=== PATIENT | male | born 1955 | race Caucasian/White ===

== ENCOUNTER 2017-01-17 09:50 | Inpatient (IN) | payer MEDICARE, MEDICAID ==
[~2017-01-17] VITALS: Ht 172.7 cm; Wt 78.5 kg
[~2017-01-17 09:50] MED LIST: Aspirin PO; CINA30 PO; CLOP75TA15 PO; COR6 PO; GABA-531 PO; GLYB5TAB7 PO; LINA5TAB PO; LOSA50TA3 PO; SEVE800T PO; Vitamin B Comp W-C PO
[2017-01-17 10:43] LABS: HEMATOCRIT. 30.4 % (42.0-52.0); HEMOGLOBIN. 9.7 g/dL (14.0-18.0); MEAN CORPUSCULAR HEMOGLOBIN 27.8 pg (28.0-32.0); MEAN CORPUSCULAR VOLUME 87.2 fL (80.0-94.0); MEAN PLATELET VOLUME 8.6 fl (7.4-10.4); PLATELET 235 x1000/uL (130-400); RED BLOOD CELL COUNT 3.49 mill/uL (4.7-6.1); RED CELL DISTRIBUTION WIDTH 15.3 % (11.6-14.6)
[2017-01-17 10:53] LABS: CARBON DIOXIDE 27 mEq/L (21-32); CHLORIDE 89 mEq/L (98-107)
[2017-01-17 11:01] LABS: TROPONIN I 0.12 ng/mL (0.00-0.04)
[2017-01-17 11:02] LABS: INR 1.6; PROTHROMBIN TIME 16.7 sec
[2017-01-17 11:14] LABS: PLATELET ESTIMATE NORMAL
[2017-01-17] MEDS ORDERED: ACETAMINOPHEN WITH CODEINE 300/30MG TABLET PO ONE (11:45)
[2017-01-17] MEDS ORDERED: ALBUTEROL (0.5%) 2.5MG/0.5ML NEB HHN ONE (11:45)
[2017-01-17] MEDS ORDERED: KETOROLAC 30MG/ML VIAL IV ONE (13:15)
[2017-01-17] MEDS ORDERED: POTASSIUM CHLORIDE 20MEQ TABLET SR PO ONE (15:00)
[2017-01-17] MEDS ORDERED: KCL 10MEQ/50ML PREMIX 50 ML IV ONE (15:00)
[2017-01-17] MEDS ORDERED: CLONIDINE 0.1MG TABLET PO PRN (16:15)
[2017-01-17] MEDS ORDERED: DOCUSATE SODIUM 100MG CAPSULE PO PRN (16:15)
[2017-01-17] MEDS ORDERED: IPRATROPIUM/ALBUTEROL 0.5-3(2.5)MG/3ML NEB INH PRN (16:15)
[2017-01-17] MEDS ORDERED: DEXTROSE 50% WATER 50ML SYRINGE IV PRN (16:15)
[2017-01-17] MEDS ORDERED: INSULIN REGULAR (HUMULIN R) 300UNITS/3ML IV ONE (16:15)
[2017-01-17] MEDS ORDERED: ONDANSETRON HCL 4MG/2ML VIAL IV PRN (16:15)
[2017-01-17] MEDS ORDERED: ENOXAPARIN 40MG/0.4ML SYR SUBCUT SCH ×2 (16:15→20:00)
[2017-01-17] MEDS ORDERED: GLIM4TAB2 PO (18:32)
[2017-01-17] MEDS ORDERED: GABA-531 PO (18:32)
[2017-01-17] MEDS ORDERED: BENA40TA3 PO (18:32)
[2017-01-17] MEDS ORDERED: ATOR-2 PO (18:32)
[2017-01-17 19:15] VITALS: BP 119/66
[2017-01-17 20:00] VITALS: BP 119/66
[2017-01-17] MEDS ORDERED: LEVOFLOXACIN 750MG PREMIX 150 ML IV NR (21:00)
[2017-01-17] MEDS: BLOOD SUGAR DIAGNOSTIC STRIP TEST SCH (21:26)
[2017-01-17] MEDS: INSULIN LISPRO 100 UNITS/ML SUBCUT SCH (22:06)
[2017-01-17] MEDS: INSULIN DETEMIR UD 100 UNITS/ML SYR SUBCUT SCH (23:18)
[2017-01-18] VITALS: BP 105/68
[2017-01-18] MEDS: ACETAMINOPHEN 325MG TABLET PO PRN ×2 (01:44→11:52)
[2017-01-18 04:00] VITALS: BP 95/61
[2017-01-18] MEDS: BLOOD SUGAR DIAGNOSTIC STRIP TEST SCH ×4 (05:59→21:02)
[2017-01-18 06:17] LABS: HEMATOCRIT. 29.7 % (42.0-52.0); HEMOGLOBIN. 9.6 g/dL (14.0-18.0); MEAN CORPUSCULAR HEMOGLOBIN 28.4 pg (28.0-32.0); MEAN CORPUSCULAR VOLUME 87.9 fL (80.0-94.0); MEAN PLATELET VOLUME 9.1 fl (7.4-10.4); PLATELET 208 x1000/uL (130-400); RED BLOOD CELL COUNT 3.38 mill/uL (4.7-6.1); RED CELL DISTRIBUTION WIDTH 15.6 % (11.6-14.6)
[2017-01-18 06:50] LABS: HEPATITIS B SURFACE ANTIGEN NEGATIVE
[2017-01-18 07:14] LABS: PHOSPHORUS 2.4 mg/dL (2.5-4.9); TROPONIN I 0.08 ng/mL (0.00-0.04)
[2017-01-18 07:17] LABS: HEPATITIS B CORE AB IGM NEGATIVE
[2017-01-18 07:19] LABS: HEPATITIS A AB IGM NEGATIVE (NEGATIVE)
[2017-01-18 08:00] VITALS: BP 100/56
[2017-01-18] MEDS: INSULIN LISPRO 100 UNITS/ML SUBCUT SCH ×3 (08:10→17:06)
[2017-01-18] MEDS: OMEPRAZOLE 20MG CAPSULE EXTENDED RELEASE PO SCH (08:19)
[2017-01-18 11:55] LABS: PLATELET ESTIMATE NORMAL
[2017-01-18 12:00] VITALS: BP 108/59
[2017-01-18] MEDS: DIPHENHYDRAMINE 25MG CAPSULE PO PRN ×2 (13:03→18:58)
[2017-01-18 16:00] VITALS: BP 106/63
[2017-01-18] MEDS: VANCOMYCIN 1,750 MG in DEXT 5% WATER 500 ML IV NR ×3 (18:07→20:30)
[2017-01-18 20:00] VITALS: BP 127/63
[2017-01-19] VITALS: BP 145/72
[2017-01-19] MEDS: DIPHENHYDRAMINE 25MG CAPSULE PO PRN ×2 (00:31→06:31)
[2017-01-19] MEDS: ENOXAPARIN 30MG/0.3ML SYR SUBCUT SCH ×2 (00:32→21:00)
[2017-01-19] MEDS: INSULIN LISPRO 100 UNITS/ML SUBCUT SCH ×5 (00:37→21:13)
[2017-01-19] MEDS: INSULIN DETEMIR UD 100 UNITS/ML SYR SUBCUT SCH ×2 (01:07→21:14)
[2017-01-19 04:00] VITALS: BP 144/69
[2017-01-19] MEDS: ACETAMINOPHEN 325MG TABLET PO PRN (04:29)
[2017-01-19] MEDS: BLOOD SUGAR DIAGNOSTIC STRIP TEST SCH ×4 (06:18→21:01)
[2017-01-19 08:00] VITALS: BP 116/63
[2017-01-19 08:38] LABS: HEMATOCRIT. 32.1 % (42.0-52.0); HEMOGLOBIN. 10.5 g/dL (14.0-18.0); MEAN CORPUSCULAR HEMOGLOBIN 28.4 pg (28.0-32.0); MEAN CORPUSCULAR VOLUME 87.3 fL (80.0-94.0); MEAN PLATELET VOLUME 9.1 fl (7.4-10.4); PLATELET 224 x1000/uL (130-400); RED BLOOD CELL COUNT 3.68 mill/uL (4.7-6.1); RED CELL DISTRIBUTION WIDTH 16.2 % (11.6-14.6)
[2017-01-19] MEDS: OMEPRAZOLE 20MG CAPSULE EXTENDED RELEASE PO SCH (09:23)
[2017-01-19] MEDS: SILVER SULFADIAZINE 1% CREAM 50GM TOP SCH (09:25)
[2017-01-19] MEDS ORDERED: ASPIRIN 81MG TABLET PO SCH (10:30)
[2017-01-19] MEDS ORDERED: LEVOFLOXACIN 500MG PREMIX 100 ML IV SCH (11:00)
[2017-01-19] MEDS: LINAGLIPTIN 5MG TABLET PO SCH (11:49)
[2017-01-19 12:00] VITALS: BP 110/67
[2017-01-19 16:00] VITALS: BP 126/82
[2017-01-19 17:23] LABS: PLATELET ESTIMATE NORMAL
[2017-01-19] MEDS: GLIMEPIRIDE 4MG TABLET PO SCH (18:04)
[2017-01-19 20:00] VITALS: BP 118/64
[2017-01-19] MEDS: GABAPENTIN 300MG CAPSULE PO SCH (21:00)
[2017-01-19] MEDS: CARVEDILOL 6.25 MG TABLET PO SCH (21:01)
[2017-01-19] MEDS: LOSARTAN POTASSIUM 50 MG TABLET PO SCH (21:01)
[2017-01-19] MEDS: ATORVASTATIN CALCIUM 40MG TABLET PO SCH (21:01)
[2017-01-20] VITALS: BP 121/70
[2017-01-20] MEDS: ACETAMINOPHEN 325MG TABLET PO PRN (01:00)
[2017-01-20 04:01] VITALS: BP 119/62
[2017-01-20 06:13] LABS: PHOSPHORUS 2.5 mg/dL (2.5-4.9)
[2017-01-20 06:38] LABS: BASOPHILS % 0.2 % (0.0-2.0); EOSINOPHILS % 1.5 % (0.0-5.0); HEMATOCRIT. 26.6 % (42.0-52.0); HEMOGLOBIN. 8.8 g/dL (14.0-18.0); MEAN CORPUSCULAR HEMOGLOBIN 28.6 pg (28.0-32.0); MEAN PLATELET VOLUME 9.1 fl (7.4-10.4); MONOCYTES % 6.9 % (2.0-8.0); NEUTROPHILS % 83.4 % (40.0-76.0); PLATELET 183 x1000/uL (130-400); RED BLOOD CELL COUNT 3.09 mill/uL (4.7-6.1); RED CELL DISTRIBUTION WIDTH 16.3 % (11.6-14.6)
[2017-01-20] MEDS: BLOOD SUGAR DIAGNOSTIC STRIP TEST SCH ×4 (06:49→20:03)
[2017-01-20] MEDS: INSULIN LISPRO 100 UNITS/ML SUBCUT SCH ×4 (07:24→20:03)
[2017-01-20 08:00] VITALS: BP 136/68
[2017-01-20] MEDS ORDERED: CLOPIDOGREL 75MG TABLET PO SCH (09:00)
[2017-01-20] MEDS ORDERED: ASPIRIN 81MG TABLET PO SCH (09:00)
[2017-01-20] MEDS: SILVER SULFADIAZINE 1% CREAM 50GM TOP SCH (09:00)
[2017-01-20] MEDS ORDERED: FAMOTIDINE 20MG TABLET PO SCH (09:00)
[2017-01-20] MEDS ORDERED: CINACALCET HCL 30MG TABLET PO SCH (09:00)
[2017-01-20 09:46] LABS: TOTAL IRON BINDING CAPACITY 164 ug/dL (250-450)
[2017-01-20 12:00] VITALS: BP 107/56
[2017-01-20 15:11] VITALS: BP 107/56
[2017-01-20 16:00] VITALS: BP 123/61
[2017-01-20] MEDS: GLIMEPIRIDE 4MG TABLET PO SCH ×2 (16:47→17:10)
[2017-01-20] MEDS: CARVEDILOL 6.25 MG TABLET PO SCH ×2 (16:47→19:50)
[2017-01-20] MEDS: LINAGLIPTIN 5MG TABLET PO SCH (16:48)
[2017-01-20] MEDS: LOSARTAN POTASSIUM 50 MG TABLET PO SCH ×2 (16:48→19:51)
[2017-01-20] MEDS: FERROUS SULFATE 325MG TABLET PO SCH ×2 (16:48→17:10)
[2017-01-20] MEDS ORDERED: VANCOMYCIN 1250MG in DEXTROSE 5% WATER 250ML IV SCH (17:00)
[2017-01-20] MEDS: GABAPENTIN 300MG CAPSULE PO SCH (19:49)
[2017-01-20] MEDS: ATORVASTATIN CALCIUM 40MG TABLET PO SCH (19:49)
[2017-01-20] MEDS: ENOXAPARIN 30MG/0.3ML SYR SUBCUT SCH (19:50)
[2017-01-20] MEDS: INSULIN DETEMIR UD 100 UNITS/ML SYR SUBCUT SCH (20:03)
[2017-01-20] MEDS ORDERED: EPOETIN ALFA 4000UNITS/ML VIAL SUBCUT SCH (21:00)
== END 2017-01-20 20:25 | DRG 871 ==
LOC: ER 10:08 → 7WST 11:47 → ENRESERV 15:23 → SUPCPDRO 15:23
PROVIDERS: ADMIT Family Medicine Adult Medicine; ATTEND Family Medicine Adult Medicine
PROC: 5A1D60Z (ICD-10-PCS; 2017-01-17)
PROC: 0Y9M0ZZ Drainage of Right Foot, Open Approach (ICD-10-PCS; principal; 2017-01-19)
DX: A41.9 Sepsis, unspecified organism (principal); E43 Unspecified severe protein-calorie malnutrition; N18.6 End stage renal disease; I13.2 Hypertensive heart and chronic kidney disease with heart failure and with stage 5 chronic kidney disease, or end stage renal disease; E87.1 Hypo-osmolality and hyponatremia; D68.9 Coagulation defect, unspecified; L02.611 Cutaneous abscess of right foot; I42.9 Cardiomyopathy, unspecified; M86.8X7 Other osteomyelitis, ankle and foot; L03.115 Cellulitis of right lower limb; I50.9 Heart failure, unspecified; D63.1 Anemia in chronic kidney disease; B95.8 Unspecified staphylococcus as the cause of diseases classified elsewhere; E11.22 Type 2 diabetes mellitus with diabetic chronic kidney disease; E11.319 Type 2 diabetes mellitus with unspecified diabetic retinopathy without macular edema; E11.42 Type 2 diabetes mellitus with diabetic polyneuropathy; E11.621 Type 2 diabetes mellitus with foot ulcer; E11.69 Type 2 diabetes mellitus with other specified complication; E78.5 Hyperlipidemia, unspecified; E87.6 Hypokalemia; I25.10 Atherosclerotic heart disease of native coronary artery without angina pectoris; E11.51 Type 2 diabetes mellitus with diabetic peripheral angiopathy without gangrene; L97.519 Non-pressure chronic ulcer of other part of right foot with unspecified severity; L97.529 Non-pressure chronic ulcer of other part of left foot with unspecified severity; M25.70 Osteophyte, unspecified joint; S92.501A Displaced unspecified fracture of right lesser toe(s), initial encounter for closed fracture; S92.354A Nondisplaced fracture of fifth metatarsal bone, right foot, initial encounter for closed fracture; I95.9 Hypotension, unspecified; W18.39XA Other fall on same level, initial encounter; Z99.2 Dependence on renal dialysis; Z82.49 Family history of ischemic heart disease and other diseases of the circulatory system; Z83.3 Family history of diabetes mellitus; Z87.891 Personal history of nicotine dependence; Z88.0 Allergy status to penicillin; Z95.5 Presence of coronary angioplasty implant and graft; Y93.89 Activity, other specified; Y92.89 Other specified places as the place of occurrence of the external cause; Y99.8 Other external cause status; Z98.42 Cataract extraction status, left eye; Z88.6 Allergy status to analgesic agent
CPT/HCPCS: 36415; 71010; 73562; 73630; 73721; 80048; 80053; 80061; 80076; 80202; 82728; 82962; 83036; 83540; 83550; 83735; 83880; 84100; 84484; 85025; 85610; 86705; 86709; 86803; 87040; 87070; 87077; 87205; 87340; 93005; 93306; 93923; 93970; 93971; 94640; 94664; 96365; 96375; 97162; 99285; C1893; G0482; J0885; J1650; J1815; J1885; J1956; J3370; J3480; J7030; J7050; J7060; J7611; J7620; Q0163

== ENCOUNTER 2017-02-18 16:15 | Emergency (ER) | payer MEDICARE, MEDICAID ==
[~2017-02-18] VITALS: Ht 172.7 cm; Wt 90.0 kg
[~2017-02-18 16:15] MED LIST changes: -GABA-531 PO
[2017-02-18] MEDS ORDERED: DIAZEPAM 5 MG TABLET PO ONE (18:45)
[2017-02-18] MEDS ORDERED: TRAMADOL 50MG TABLET PO ONE (19:30)
[2017-02-18 19:41] VITALS: BP 138/79
== END 2017-02-18 22:11 | disposition home or self-care (01) ==
LOC: ER 16:25
DX: M54.5 Low back pain (principal); E11.9 Type 2 diabetes mellitus without complications; I51.9 Heart disease, unspecified; Z88.0 Allergy status to penicillin; Z99.2 Dependence on renal dialysis; Z88.5 Allergy status to narcotic agent
CPT/HCPCS: 82962; 99283

== ENCOUNTER 2017-02-19 10:52 | Inpatient (IN) | payer MEDICARE, MEDICAID ==
[~2017-02-19] VITALS: Ht 172.7 cm; Wt 98.0 kg
[~2017-02-19 10:52] MED LIST changes: +REN800 PO; -SEVE800T PO
[2017-02-19] MEDS ORDERED: LEVOFLOXACIN 500MG PREMIX 100 ML IV ONE (12:45)
[2017-02-19] MEDS ORDERED: CLINDAMYCIN HCL 150MG CAPSULE PO SCH (12:45)
[2017-02-19] MEDS ORDERED: VANCOMYCIN 1 G PREMIX 200 ML IV SCH (12:45)
[2017-02-19 13:08] LABS: HEMATOCRIT. 28.3 % (42.0-52.0); HEMOGLOBIN. 9.3 g/dL (14.0-18.0); MEAN CORPUSCULAR HEMOGLOBIN 28.9 pg (28.0-32.0); MEAN PLATELET VOLUME 7.5 fl (7.4-10.4); PLATELET 274 x1000/uL (130-400); RED BLOOD CELL COUNT 3.22 mill/uL (4.7-6.1); RED CELL DISTRIBUTION WIDTH 17.9 % (11.6-14.6)
[2017-02-19 13:23] LABS: CARBON DIOXIDE 17 mEq/L (21-32); CHLORIDE 95 mEq/L (98-107)
[2017-02-19 13:33] LABS: NUCLEATED RED BLOOD CELLS 1 /100 WBC; PLATELET ESTIMATE NORMAL
[2017-02-19 14:18] LABS: INR 1.5; PROTHROMBIN TIME 15.3 sec (9.4-11.6)
[2017-02-19] MEDS ORDERED: SODIUM CHLORIDE 0.9% 1,000 ML IV ONE (15:03)
[2017-02-19 17:58] VITALS: BP 148/76
[2017-02-19 20:00] VITALS: BP 130/69
[2017-02-19] MEDS ORDERED: VANCOMYCIN 500 MG PREMIX 100 ML IV NR (20:00)
[2017-02-19] MEDS ORDERED: DEXTROSE 50% WATER 50ML SYRINGE IV PRN (22:45)
[2017-02-20] VITALS: BP 136/78
[2017-02-20 04:00] VITALS: BP 134/75
[2017-02-20] MEDS: BLOOD SUGAR DIAGNOSTIC STRIP TEST SCH ×4 (06:24→20:39)
[2017-02-20] MEDS: INSULIN LISPRO 100 UNITS/ML SUBCUT SCH ×4 (06:24→20:44)
[2017-02-20] MEDS: GLYBURIDE 5MG TABLET PO SCH (06:26)
[2017-02-20 06:48] LABS: BASOPHILS % 0.9 % (0.0-2.0); EOSINOPHILS % 2.1 % (0.0-5.0); HEMATOCRIT. 28.9 % (42.0-52.0); HEMOGLOBIN. 9.4 g/dL (14.0-18.0); MEAN CORPUSCULAR HEMOGLOBIN 28.7 pg (28.0-32.0); MEAN CORPUSCULAR VOLUME 87.9 fL (80.0-94.0); MEAN PLATELET VOLUME 8.2 fl (7.4-10.4); MONOCYTES % 13.7 % (2.0-8.0); NEUTROPHILS % 70.3 % (40.0-76.0); PLATELET 256 x1000/uL (130-400); RED BLOOD CELL COUNT 3.28 mill/uL (4.7-6.1); RED CELL DISTRIBUTION WIDTH 17.3 % (11.6-14.6)
[2017-02-20 08:00] VITALS: BP 134/68
[2017-02-20] MEDS: CLOPIDOGREL 75MG TABLET PO SCH (08:10)
[2017-02-20] MEDS: LINAGLIPTIN 5MG TABLET PO SCH (08:11)
[2017-02-20] MEDS: ASPIRIN 81MG EC TABLET PO SCH (08:11)
[2017-02-20] MEDS: FOLIC ACID/VITAMIN B COMP W-C TABLET PO SCH (08:11)
[2017-02-20] MEDS: MULTIVITAMINS,THER W-MINERALS TABLET PO SCH (08:11)
[2017-02-20] MEDS: CINACALCET HCL 30MG TABLET PO SCH (08:11)
[2017-02-20] MEDS: SEVELAMER CARBONATE 800 MG TABLET PO SCH ×3 (08:12→17:52)
[2017-02-20] MEDS: LOSARTAN POTASSIUM 50 MG TABLET PO SCH ×2 (08:33→20:43)
[2017-02-20] MEDS: CARVEDILOL 6.25 MG TABLET PO SCH ×2 (08:33→20:43)
[2017-02-20] MEDS ORDERED: ENOXAPARIN 30MG/0.3ML SYR SUBCUT SCH (09:00)
[2017-02-20 10:36] LABS: PHOSPHORUS 7.3 mg/dL (2.5-4.9)
[2017-02-20 12:00] VITALS: BP 139/73
[2017-02-20] MEDS ORDERED: DOCUSATE SODIUM 100MG CAPSULE PO PRN (13:45)
[2017-02-20] MEDS ORDERED: IPRATROPIUM/ALBUTEROL 0.5-3(2.5)MG/3ML NEB INH PRN (13:45)
[2017-02-20] MEDS ORDERED: ONDANSETRON HCL 4MG/2ML VIAL IV PRN ×2 (13:45)
[2017-02-20] MEDS ORDERED: VANCOMYCIN 1 G PREMIX 200 ML IV SCH (14:00)
[2017-02-20 16:00] VITALS: BP 92/58
[2017-02-20] MEDS: LORAZEPAM 2MG/ML CPJ IV PRN (16:29)
[2017-02-20] MEDS ORDERED: LORAZEPAM 2MG/ML CPJ IV PRN (16:30)
[2017-02-20] MEDS: APIXABAN 2.5 MG TABLET PO SCH (17:52)
[2017-02-20] MEDS ORDERED: MORPHINE SULFATE 2 MG/ML CPJ (NOT FOR IM USE) IV PRN ×2 (18:00)
[2017-02-20 20:38] VITALS: BP 151/74
[2017-02-21] VITALS: BP 126/64
[2017-02-21 04:00] VITALS: BP 126/63
[2017-02-21] MEDS: INSULIN LISPRO 100 UNITS/ML SUBCUT SCH ×4 (06:41→21:24)
[2017-02-21] MEDS: BLOOD SUGAR DIAGNOSTIC STRIP TEST SCH ×4 (06:41→20:44)
[2017-02-21] MEDS: OMEPRAZOLE 20MG CAPSULE EXTENDED RELEASE PO SCH (06:53)
[2017-02-21] MEDS: GLYBURIDE 5MG TABLET PO SCH (06:53)
[2017-02-21 07:18] LABS: BASOPHILS % 1.1 % (0.0-2.0); EOSINOPHILS % 2.6 % (0.0-5.0); HEMATOCRIT. 27.1 % (42.0-52.0); HEMOGLOBIN. 8.9 g/dL (14.0-18.0); LYMPHOCYTES % 12.6 % (20.0-50.0); MEAN CORPUSCULAR HEMOGLOBIN 28.7 pg (28.0-32.0); MEAN CORPUSCULAR VOLUME 86.9 fL (80.0-94.0); MEAN PLATELET VOLUME 8.1 fl (7.4-10.4); MONOCYTES % 12.3 % (2.0-8.0); NEUTROPHILS % 71.4 % (40.0-76.0); PLATELET 252 x1000/uL (130-400); RED BLOOD CELL COUNT 3.12 mill/uL (4.7-6.1); RED CELL DISTRIBUTION WIDTH 17.6 % (11.6-14.6)
[2017-02-21 08:00] VITALS: BP 125/77
[2017-02-21] MEDS: CLOPIDOGREL 75MG TABLET PO SCH (08:22)
[2017-02-21] MEDS: CARVEDILOL 6.25 MG TABLET PO SCH ×2 (08:23→20:48)
[2017-02-21] MEDS: LINAGLIPTIN 5MG TABLET PO SCH (08:23)
[2017-02-21] MEDS: ASPIRIN 81MG EC TABLET PO SCH (08:23)
[2017-02-21] MEDS: LOSARTAN POTASSIUM 50 MG TABLET PO SCH ×2 (08:23→20:47)
[2017-02-21] MEDS: SEVELAMER CARBONATE 800 MG TABLET PO SCH (08:23)
[2017-02-21] MEDS: CINACALCET HCL 30MG TABLET PO SCH (08:23)
[2017-02-21] MEDS: MULTIVITAMINS,THER W-MINERALS TABLET PO SCH (08:23)
[2017-02-21] MEDS: APIXABAN 2.5 MG TABLET PO SCH (08:24)
[2017-02-21] MEDS: FOLIC ACID/VITAMIN B COMP W-C TABLET PO SCH (08:24)
[2017-02-21 09:06] LABS: PHOSPHORUS 5.3 mg/dL (2.5-4.9)
[2017-02-21] MEDS: CALCIUM ACETATE 667MG CAPSULE PO SCH ×2 (12:02→17:15)
[2017-02-21] MEDS ORDERED: CALCIUM ACETATE 667MG CAPSULE PO SCH (12:40)
[2017-02-21 16:00] VITALS: BP 136/72
[2017-02-21] MEDS: LORAZEPAM 2MG/ML CPJ IV PRN (17:41)
[2017-02-21 20:00] VITALS: BP 148/107
[2017-02-21] MEDS: EPOETIN ALFA 4000UNITS/ML VIAL SUBCUT SCH (20:49)
[2017-02-22] VITALS: BP 140/76
[2017-02-22 04:00] VITALS: BP 125/64
[2017-02-22] MEDS: DIPHENHYDRAMINE 50MG/ML VIAL IV PRN ×2 (05:25→10:06)
[2017-02-22] MEDS: BLOOD SUGAR DIAGNOSTIC STRIP TEST SCH ×4 (06:17→21:00)
[2017-02-22] MEDS: INSULIN LISPRO 100 UNITS/ML SUBCUT SCH ×4 (06:40→21:00)
[2017-02-22] MEDS: OMEPRAZOLE 20MG CAPSULE EXTENDED RELEASE PO SCH (06:47)
[2017-02-22 07:36] LABS: BASOPHILS % 0.7 % (0.0-2.0); HEMATOCRIT. 27.9 % (42.0-52.0); HEMOGLOBIN. 9.1 g/dL (14.0-18.0); LYMPHOCYTES % 11.4 % (20.0-50.0); MEAN CORPUSCULAR HEMOGLOBIN 28.6 pg (28.0-32.0); MEAN CORPUSCULAR VOLUME 87.4 fL (80.0-94.0); MONOCYTES % 12.5 % (2.0-8.0); NEUTROPHILS % 73.4 % (40.0-76.0); PLATELET 257 x1000/uL (130-400); RED BLOOD CELL COUNT 3.19 mill/uL (4.7-6.1); RED CELL DISTRIBUTION WIDTH 17.6 % (11.6-14.6)
[2017-02-22 08:00] VITALS: BP 134/50
[2017-02-22] MEDS: FOLIC ACID/VITAMIN B COMP W-C TABLET PO SCH (08:10)
[2017-02-22] MEDS: GLYBURIDE 5MG TABLET PO SCH (08:11)
[2017-02-22] MEDS: ASPIRIN 81MG EC TABLET PO SCH (08:11)
[2017-02-22] MEDS: CALCIUM ACETATE 667MG CAPSULE PO SCH ×3 (08:11→17:39)
[2017-02-22] MEDS: LINAGLIPTIN 5MG TABLET PO SCH (08:11)
[2017-02-22] MEDS: CLOPIDOGREL 75MG TABLET PO SCH (08:13)
[2017-02-22] MEDS: CARVEDILOL 6.25 MG TABLET PO SCH ×2 (08:13→22:00)
[2017-02-22] MEDS: LOSARTAN POTASSIUM 50 MG TABLET PO SCH ×2 (08:13→22:00)
[2017-02-22 09:00] LABS: CARBON DIOXIDE 22 mEq/L (21-32); CHLORIDE 95 mEq/L (98-107); PHOSPHORUS 4.3 mg/dL (2.5-4.9)
[2017-02-22] MEDS: LORAZEPAM 2MG/ML CPJ IV PRN ×2 (10:06→16:55)
[2017-02-22] MEDS ORDERED: LORAZEPAM 2MG/ML CPJ IV SCH ×2 (10:45→11:15)
[2017-02-22 12:00] VITALS: BP 123/71
[2017-02-22] MEDS ORDERED: HALOPERIDOL LACTATE 5MG/ML VIAL IM NR (15:15)
[2017-02-22 15:53] VITALS: BP 113/64
[2017-02-23 04:00] VITALS: BP 128/70
[2017-02-23] MEDS: LORAZEPAM 2MG/ML CPJ IV PRN (04:13)
[2017-02-23 06:09] LABS: EOSINOPHILS % 0.8 % (0.0-5.0); HEMOGLOBIN. 9.1 g/dL (14.0-18.0); LYMPHOCYTES % 11.1 % (20.0-50.0); MEAN CORPUSCULAR HEMOGLOBIN 28.4 pg (28.0-32.0); MEAN CORPUSCULAR VOLUME 87.3 fL (80.0-94.0); MEAN PLATELET VOLUME 7.9 fl (7.4-10.4); NEUTROPHILS % 75.1 % (40.0-76.0); PLATELET 228 x1000/uL (130-400); RED CELL DISTRIBUTION WIDTH 17.8 % (11.6-14.6)
[2017-02-23] MEDS: OMEPRAZOLE 20MG CAPSULE EXTENDED RELEASE PO SCH (06:39)
[2017-02-23] MEDS: HYDROCODONE/ACETAMINOPHEN 5/325MG TABLET PO PRN (06:39)
[2017-02-23] MEDS: BLOOD SUGAR DIAGNOSTIC STRIP TEST SCH ×4 (06:41→21:31)
[2017-02-23] MEDS: INSULIN LISPRO 100 UNITS/ML SUBCUT SCH ×4 (06:41→21:26)
[2017-02-23 08:00] VITALS: BP 143/89
[2017-02-23] MEDS: CLOPIDOGREL 75MG TABLET PO SCH (09:49)
[2017-02-23] MEDS: LOSARTAN POTASSIUM 50 MG TABLET PO SCH ×2 (09:49→21:23)
[2017-02-23] MEDS: CARVEDILOL 6.25 MG TABLET PO SCH ×2 (09:49→21:23)
[2017-02-23] MEDS: ASPIRIN 81MG EC TABLET PO SCH (09:49)
[2017-02-23] MEDS: FOLIC ACID/VITAMIN B COMP W-C TABLET PO SCH (09:49)
[2017-02-23] MEDS: LINAGLIPTIN 5MG TABLET PO SCH (09:50)
[2017-02-23 12:00] VITALS: BP 133/79
[2017-02-23] MEDS ORDERED: LORAZEPAM 2MG/ML CPJ IV PRN (12:00)
[2017-02-23] MEDS: CALCIUM ACETATE 667MG CAPSULE PO SCH ×2 (13:39→18:13)
[2017-02-23 16:01] VITALS: BP 135/68
[2017-02-23 20:00] VITALS: BP 122/62
[2017-02-23] MEDS: EPOETIN ALFA 4000UNITS/ML VIAL SUBCUT SCH (21:24)
[2017-02-24] VITALS (7 sets, daily range): BP systolic 102–139; BP diastolic 45–82
[2017-02-24] MEDS: DIPHENHYDRAMINE 50MG/ML VIAL IV PRN ×2 (02:16→21:07)
[2017-02-24] MEDS: HYDROCODONE/ACETAMINOPHEN 5/325MG TABLET PO PRN ×2 (02:59→12:07)
[2017-02-24] MEDS: BLOOD SUGAR DIAGNOSTIC STRIP TEST SCH ×4 (07:10→21:00)
[2017-02-24] MEDS: INSULIN LISPRO 100 UNITS/ML SUBCUT SCH ×4 (07:11→21:00)
[2017-02-24] MEDS: CLOPIDOGREL 75MG TABLET PO SCH (08:26)
[2017-02-24] MEDS: LINAGLIPTIN 5MG TABLET PO SCH (08:26)
[2017-02-24] MEDS: CALCIUM ACETATE 667MG CAPSULE PO SCH ×3 (08:26→16:52)
[2017-02-24] MEDS: ASPIRIN 81MG EC TABLET PO SCH (08:26)
[2017-02-24] MEDS: FAMOTIDINE 20MG TABLET PO SCH (08:26)
[2017-02-24] MEDS: FOLIC ACID/VITAMIN B COMP W-C TABLET PO SCH (08:26)
[2017-02-24] MEDS: LOSARTAN POTASSIUM 50 MG TABLET PO SCH ×3 (08:26→21:44)
[2017-02-24] MEDS: CARVEDILOL 6.25 MG TABLET PO SCH ×3 (08:26→21:44)
[2017-02-24 10:17] LABS: EOSINOPHILS % 2.6 % (0.0-5.0); HEMATOCRIT. 25.7 % (42.0-52.0); HEMOGLOBIN. 8.3 g/dL (14.0-18.0); LYMPHOCYTES % 11.9 % (20.0-50.0); MEAN CORPUSCULAR HEMOGLOBIN 28.5 pg (28.0-32.0); MEAN CORPUSCULAR VOLUME 87.9 fL (80.0-94.0); MONOCYTES % 10.4 % (2.0-8.0); NEUTROPHILS % 74.1 % (40.0-76.0); PLATELET 219 x1000/uL (130-400); RED BLOOD CELL COUNT 2.92 mill/uL (4.7-6.1)
[2017-02-24 10:39] LABS: PHOSPHORUS 4.9 mg/dL (2.5-4.9)
[2017-02-24] MEDS: LORAZEPAM 2MG/ML CPJ IV PRN ×2 (14:58→18:29)
[2017-02-24] MEDS: APIXABAN 2.5 MG TABLET PO SCH (16:52)
[2017-02-24] MEDS: ACETAMINOPHEN 325MG TABLET PO PRN (16:52)
[2017-02-24] MEDS ORDERED: MEROPENEM 500 MG in SODIUM CHLORIDE 0.9% 50 ML IV SCH (20:00)
[2017-02-25] VITALS (7 sets, daily range): BP systolic 119–149; BP diastolic 55–76
[2017-02-25] MEDS: BLOOD SUGAR DIAGNOSTIC STRIP TEST SCH ×3 (05:59→16:29)
[2017-02-25 06:23] LABS: BASOPHILS % 0.8 % (0.0-2.0); EOSINOPHILS % 2.2 % (0.0-5.0); HEMATOCRIT. 26.4 % (42.0-52.0); HEMOGLOBIN. 8.7 g/dL (14.0-18.0); LYMPHOCYTES % 7.8 % (20.0-50.0); MEAN CORPUSCULAR HEMOGLOBIN 29.1 pg (28.0-32.0); MEAN CORPUSCULAR VOLUME 88.6 fL (80.0-94.0); MEAN PLATELET VOLUME 7.8 fl (7.4-10.4); MONOCYTES % 9.6 % (2.0-8.0); NEUTROPHILS % 79.6 % (40.0-76.0); PLATELET 205 x1000/uL (130-400); RED BLOOD CELL COUNT 2.98 mill/uL (4.7-6.1); RED CELL DISTRIBUTION WIDTH 18.6 % (11.6-14.6)
[2017-02-25] MEDS: INSULIN LISPRO 100 UNITS/ML SUBCUT SCH ×3 (06:28→17:40)
[2017-02-25 07:09] LABS: PHOSPHORUS 3.9 mg/dL (2.5-4.9)
[2017-02-25] MEDS: FOLIC ACID/VITAMIN B COMP W-C TABLET PO SCH (08:43)
[2017-02-25] MEDS: LINAGLIPTIN 5MG TABLET PO SCH (08:43)
[2017-02-25] MEDS: ASPIRIN 81MG EC TABLET PO SCH (08:43)
[2017-02-25] MEDS: CLOPIDOGREL 75MG TABLET PO SCH (08:43)
[2017-02-25] MEDS: APIXABAN 2.5 MG TABLET PO SCH ×2 (08:43→17:00)
[2017-02-25] MEDS: LOSARTAN POTASSIUM 50 MG TABLET PO SCH (08:43)
[2017-02-25] MEDS: CALCIUM ACETATE 667MG CAPSULE PO SCH ×3 (08:44→17:37)
[2017-02-25] MEDS: FAMOTIDINE 20MG TABLET PO SCH (08:44)
[2017-02-25] MEDS: CARVEDILOL 6.25 MG TABLET PO SCH (08:44)
[2017-02-25] MEDS: GLYBURIDE 5MG TABLET PO SCH (09:00)
[2017-02-25] MEDS: ACETAMINOPHEN 325MG TABLET PO PRN (12:01)
[2017-02-25] MEDS ORDERED: LORAZEPAM 1MG TABLET PO NR (14:06)
[2017-02-25] MEDS ORDERED: HYDROCODONE/ACETAMINOPHEN 5/325MG TABLET PO PRN ×2 (14:07→21:15)
[2017-02-25] MEDS ORDERED: VANCOMYCIN 1 G PREMIX 200 ML IV NR ×2 (20:00→21:30)
[2017-02-25] MEDS ORDERED: INSULIN LISPRO 100 UNITS/ML SUBCUT SCH (21:00)
[2017-02-25] MEDS ORDERED: CARVEDILOL 6.25 MG TABLET PO SCH (21:00)
[2017-02-25] MEDS ORDERED: LOSARTAN POTASSIUM 50 MG TABLET PO SCH (21:00)
[2017-02-25] MEDS ORDERED: IPRATROPIUM/ALBUTEROL 0.5-3(2.5)MG/3ML NEB INH PRN (21:15)
[2017-02-25] MEDS ORDERED: ACETAMINOPHEN 325MG TABLET PO PRN ×2 (21:15)
[2017-02-25] MEDS ORDERED: ONDANSETRON HCL 4MG/2ML VIAL IV PRN (21:15)
[2017-02-25] MEDS ORDERED: DOCUSATE SODIUM 100MG CAPSULE PO PRN (21:15)
[2017-02-25] MEDS ORDERED: MEROPENEM 500 MG in SODIUM CHLORIDE 0.9% 50 ML IV SCH (21:15)
[2017-02-25] MEDS ORDERED: DIPHENHYDRAMINE 50MG/ML VIAL IV PRN (21:15)
[2017-02-25] MEDS ORDERED: LORAZEPAM 2MG/ML CPJ IV PRN (21:15)
[2017-02-25] MEDS ORDERED: DEXTROSE 50% WATER 50ML SYRINGE IV PRN (21:15)
[2017-02-26] MEDS ORDERED: BLOOD SUGAR DIAGNOSTIC STRIP TEST SCH ×2 (07:10)
[2017-02-26] MEDS ORDERED: CALCIUM ACETATE 667MG CAPSULE PO SCH ×2 (07:40)
[2017-02-26] MEDS ORDERED: ASPIRIN 81MG EC TABLET PO SCH (09:00)
[2017-02-26] MEDS ORDERED: CLOPIDOGREL 75MG TABLET PO SCH (09:00)
[2017-02-26] MEDS ORDERED: FAMOTIDINE 20MG TABLET PO SCH (09:00)
[2017-02-26] MEDS ORDERED: GLYBURIDE 5MG TABLET PO SCH (09:00)
[2017-02-26] MEDS ORDERED: FOLIC ACID/VITAMIN B COMP W-C TABLET PO SCH (09:00)
[2017-02-26] MEDS ORDERED: APIXABAN 2.5 MG TABLET PO SCH ×2 (09:00)
[2017-02-26] MEDS ORDERED: LINAGLIPTIN 5MG TABLET PO SCH (09:00)
[2017-02-28] MEDS ORDERED: EPOETIN ALFA 4000UNITS/ML VIAL SUBCUT SCH (21:00)
== END 2017-02-25 22:20 | DRG 853 ==
LOC: ER 11:10 → EDBEDREQ 14:44 → 8WST 15:13 → ENRESERV 16:02 → 8WST 18:05 → UNDODISIN 02-25 12:20
PROVIDERS: ADMIT Family Medicine Adult Medicine; ATTEND Family Medicine Adult Medicine
PROC: 5A1D60Z (ICD-10-PCS; 2017-02-19)
PROC: 0YBM0ZZ Excision of Right Foot, Open Approach (ICD-10-PCS; principal; 2017-02-23)
DX: A41.9 Sepsis, unspecified organism (principal); N18.6 End stage renal disease; I13.2 Hypertensive heart and chronic kidney disease with heart failure and with stage 5 chronic kidney disease, or end stage renal disease; E87.2 Acidosis; I42.9 Cardiomyopathy, unspecified; D68.9 Coagulation defect, unspecified; E44.0 Moderate protein-calorie malnutrition; E11.22 Type 2 diabetes mellitus with diabetic chronic kidney disease; N25.81 Secondary hyperparathyroidism of renal origin; E87.1 Hypo-osmolality and hyponatremia; I50.22 Chronic systolic (congestive) heart failure; L03.116 Cellulitis of left lower limb; L03.115 Cellulitis of right lower limb; I82.C21 Chronic embolism and thrombosis of right internal jugular vein; I27.2 Other secondary pulmonary hypertension; E11.319 Type 2 diabetes mellitus with unspecified diabetic retinopathy without macular edema; D63.8 Anemia in other chronic diseases classified elsewhere; Z99.2 Dependence on renal dialysis; L97.529 Non-pressure chronic ulcer of other part of left foot with unspecified severity; L97.519 Non-pressure chronic ulcer of other part of right foot with unspecified severity; I25.10 Atherosclerotic heart disease of native coronary artery without angina pectoris; E83.39 Other disorders of phosphorus metabolism; I73.9 Peripheral vascular disease, unspecified; E11.51 Type 2 diabetes mellitus with diabetic peripheral angiopathy without gangrene; F41.9 Anxiety disorder, unspecified; E78.5 Hyperlipidemia, unspecified; E11.65 Type 2 diabetes mellitus with hyperglycemia; E11.621 Type 2 diabetes mellitus with foot ulcer; E11.42 Type 2 diabetes mellitus with diabetic polyneuropathy; B95.61 Methicillin susceptible Staphylococcus aureus infection as the cause of diseases classified elsewhere; Z68.32 Body mass index [BMI] 32.0-32.9, adult; Z95.5 Presence of coronary angioplasty implant and graft; Z91.19 Patient's noncompliance with other medical treatment and regimen; Z89.429 Acquired absence of other toe(s), unspecified side; Z87.891 Personal history of nicotine dependence; Z98.42 Cataract extraction status, left eye; Z88.6 Allergy status to analgesic agent; Z88.8 Allergy status to other drugs, medicaments and biological substances; Z79.899 Other long term (current) drug therapy
CPT/HCPCS: 36415; 71010; 73620; 73721; 80048; 80053; 80061; 80202; 82962; 83605; 83735; 83970; 84100; 84443; 85025; 85610; 85651; 86140; 87070; 87077; 87186; 87205; 87493; 93005; 96365; 96366; 96368; 99283; 99285; J0885; J1200; J1630; J1650; J1815; J1956; J2060; J2185; J3370; J7030; J7050

== ENCOUNTER 2017-04-03 13:54 | Inpatient (IN) | payer MEDICARE, MEDICAID ==
[~2017-04-03] VITALS: Ht 152.4 cm; Wt 89.4 kg
[2017-04-03 15:45] LABS: HEMATOCRIT. 31.8 % (42.0-52.0); HEMOGLOBIN. 10.1 g/dL (14.0-18.0); MEAN CORPUSCULAR HEMOGLOBIN 28.5 pg (28.0-32.0); MEAN CORPUSCULAR VOLUME 89.9 fL (80.0-94.0); MEAN PLATELET VOLUME 8.5 fl (7.4-10.4); PLATELET 204 x1000/uL (130-400); RED BLOOD CELL COUNT 3.54 mill/uL (4.7-6.1); RED CELL DISTRIBUTION WIDTH 17.9 % (11.6-14.6)
[2017-04-03 15:50] LABS: CHLORIDE 101 mEq/L (98-107)
[2017-04-03 15:52] LABS: INR 1.2; PARTIAL THROMBOPLASTIN TIME 32.7 sec (23.4-31.0); PROTHROMBIN TIME 12.7 sec (9.4-11.6)
[2017-04-03 15:58] LABS: CARBON DIOXIDE 29 mEq/L (21-32); PHOSPHORUS 2.2 mg/dL (2.5-4.9)
[2017-04-03 15:59] LABS: TROPONIN I 0.02 ng/mL (0.00-0.04)
[2017-04-03 16:14] LABS: PLATELET ESTIMATE NORMAL
[2017-04-03] MEDS ORDERED: VANCOMYCIN 1 G PREMIX 200 ML IV SCH (17:30)
[2017-04-03] MEDS ORDERED: DIPHENHYDRAMINE 50MG/ML VIAL IV ONE (17:30)
[2017-04-03] MEDS ORDERED: LORAZEPAM 2MG/ML CPJ IV ONE ×2 (20:15→21:15)
[2017-04-03 23:00] VITALS: BP 186/100
[2017-04-04] MEDS ORDERED: ATOR-2 PO (00:36)
[2017-04-04] MEDS ORDERED: ASPI-1159 PO (00:36)
[2017-04-04] MEDS ORDERED: INSU300I SQ (00:36)
[2017-04-04] MEDS ORDERED: GABA-531 PO (00:36)
[2017-04-04 00:52] VITALS: BP 137/71
[2017-04-04] MEDS ORDERED: DOCUSATE SODIUM 100MG CAPSULE PO PRN ×2 (01:00→13:15)
[2017-04-04] MEDS ORDERED: IPRATROPIUM/ALBUTEROL 0.5-3(2.5)MG/3ML NEB INH PRN (01:00)
[2017-04-04] MEDS ORDERED: GUAIFENESIN 200MG/10ML SUGAR FREE UDC PO PRN (01:00)
[2017-04-04] MEDS ORDERED: CLONIDINE 0.1MG TABLET PO PRN (01:00)
[2017-04-04] MEDS ORDERED: MAGNESIUM/ALUMINUM HYDROXIDE/SIMETHICONE 30ML UDC PO PRN (01:00)
[2017-04-04] MEDS ORDERED: LORAZEPAM 2MG/ML CPJ IV PRN (01:00)
[2017-04-04] MEDS ORDERED: HYDROMORPHONE HCL/PF 2MG/ML CPJ IV PRN (01:00)
[2017-04-04] MEDS ORDERED: ONDANSETRON HCL 4MG/2ML VIAL IV PRN ×2 (01:00→13:15)
[2017-04-04] MEDS ORDERED: ACETAMINOPHEN 325MG TABLET PO PRN (01:00)
[2017-04-04] MEDS ORDERED: DEXTROSE 50% WATER 50ML SYRINGE IV PRN (02:00)
[2017-04-04 04:00] VITALS: BP 166/82
[2017-04-04] MEDS: BLOOD SUGAR DIAGNOSTIC STRIP TEST SCH ×4 (06:50→21:50)
[2017-04-04 07:21] LABS: HEMATOCRIT. 31.1 % (42.0-52.0); LYMPHOCYTES % 10.6 % (20.0-50.0); MEAN CORPUSCULAR HEMOGLOBIN 28.7 pg (28.0-32.0); MEAN CORPUSCULAR VOLUME 89.4 fL (80.0-94.0); MEAN PLATELET VOLUME 8.8 fl (7.4-10.4); MONOCYTES % 9.1 % (2.0-8.0); NEUTROPHILS % 72.3 % (40.0-76.0); PLATELET 205 x1000/uL (130-400); RED BLOOD CELL COUNT 3.48 mill/uL (4.7-6.1); RED CELL DISTRIBUTION WIDTH 17.6 % (11.6-14.6)
[2017-04-04 07:30] LABS: AMMONIA 29 uMol/L (<32)
[2017-04-04] MEDS ORDERED: NON FORMULARY PATIENT HOME MED EA XX SCH (07:30)
[2017-04-04] MEDS ORDERED: CINACALCET HCL 30MG TABLET PO SCH (07:50)
[2017-04-04 08:00] VITALS: BP 167/77
[2017-04-04] MEDS ORDERED: GABAPENTIN 300MG CAPSULE PO SCH ×2 (09:00→21:00)
[2017-04-04] MEDS: CARVEDILOL 6.25 MG TABLET PO SCH ×3 (09:00→21:33)
[2017-04-04] MEDS ORDERED: SEVELAMER CARBONATE 800 MG TABLET PO SCH (09:00)
[2017-04-04] MEDS: LINAGLIPTIN 5MG TABLET PO SCH ×2 (09:15→09:44)
[2017-04-04] MEDS: ENOXAPARIN 30MG/0.3ML SYR SUBCUT SCH (09:44)
[2017-04-04] MEDS: INSULIN LISPRO 100 UNITS/ML SUBCUT SCH ×4 (09:45→21:50)
[2017-04-04 12:00] VITALS: BP 146/78
[2017-04-04] MEDS: CLOPIDOGREL 75MG TABLET PO SCH (13:15)
[2017-04-04 16:00] VITALS: BP 136/68
[2017-04-04 20:31] VITALS: BP 139/63
[2017-04-04] MEDS ORDERED: ATORVASTATIN CALCIUM 40MG TABLET PO SCH (21:00)
[2017-04-05 00:31] VITALS: BP 154/80
[2017-04-05 04:00] VITALS: BP 149/66
[2017-04-05 06:39] LABS: EOSINOPHILS % 10.1 % (0.0-5.0); HEMATOCRIT. 27.7 % (42.0-52.0); HEMOGLOBIN. 8.9 g/dL (14.0-18.0); LYMPHOCYTES % 11.4 % (20.0-50.0); MEAN CORPUSCULAR HEMOGLOBIN 28.6 pg (28.0-32.0); MEAN CORPUSCULAR VOLUME 88.9 fL (80.0-94.0); MEAN PLATELET VOLUME 8.8 fl (7.4-10.4); MONOCYTES % 7.4 % (2.0-8.0); NEUTROPHILS % 70.1 % (40.0-76.0); PLATELET 194 x1000/uL (130-400); RED BLOOD CELL COUNT 3.12 mill/uL (4.7-6.1); RED CELL DISTRIBUTION WIDTH 17.7 % (11.6-14.6)
[2017-04-05] MEDS: BLOOD SUGAR DIAGNOSTIC STRIP TEST SCH ×2 (07:20→12:10)
[2017-04-05 08:00] VITALS: BP 160/86
[2017-04-05] MEDS: INSULIN LISPRO 100 UNITS/ML SUBCUT SCH ×2 (08:55→12:14)
[2017-04-05] MEDS ORDERED: ASPIRIN 81MG EC TABLET PO SCH (09:00)
[2017-04-05] MEDS ORDERED: LOSARTAN POTASSIUM 50 MG TABLET PO SCH ×2 (09:00)
[2017-04-05] MEDS ORDERED: FOLIC ACID/VITAMIN B COMP W-C TABLET PO SCH (09:00)
[2017-04-05] MEDS: CARVEDILOL 6.25 MG TABLET PO SCH (10:36)
[2017-04-05] MEDS: CLOPIDOGREL 75MG TABLET PO SCH (10:37)
[2017-04-05] MEDS: LINAGLIPTIN 5MG TABLET PO SCH (10:37)
[2017-04-05] MEDS: ENOXAPARIN 30MG/0.3ML SYR SUBCUT SCH (10:37)
[2017-04-05 12:30] VITALS: BP 136/66
[2017-04-05] MEDS ORDERED: EPOETIN ALFA 4000UNITS/ML VIAL SUBCUT SCH (21:00)
== END 2017-04-05 15:05 | disposition home or self-care (01) | DRG 871 ==
LOC: ER 15:11 → 6WST 18:01 → EDBEDREQ 18:05 → ENRESERV 21:47 → 6WST 04-04 12:50
PROVIDERS: ADMIT Family Medicine Adult Medicine; ATTEND Family Medicine Adult Medicine
DX: A41.9 Sepsis, unspecified organism (principal); E43 Unspecified severe protein-calorie malnutrition; I13.2 Hypertensive heart and chronic kidney disease with heart failure and with stage 5 chronic kidney disease, or end stage renal disease; N17.9 Acute kidney failure, unspecified; D72.1 Eosinophilia; E11.22 Type 2 diabetes mellitus with diabetic chronic kidney disease; E87.2 Acidosis; E11.319 Type 2 diabetes mellitus with unspecified diabetic retinopathy without macular edema; E11.51 Type 2 diabetes mellitus with diabetic peripheral angiopathy without gangrene; N18.6 End stage renal disease; L03.113 Cellulitis of right upper limb; I42.9 Cardiomyopathy, unspecified; I50.22 Chronic systolic (congestive) heart failure; N25.81 Secondary hyperparathyroidism of renal origin; I82.C21 Chronic embolism and thrombosis of right internal jugular vein; E11.65 Type 2 diabetes mellitus with hyperglycemia; L97.519 Non-pressure chronic ulcer of other part of right foot with unspecified severity; E11.621 Type 2 diabetes mellitus with foot ulcer; F41.9 Anxiety disorder, unspecified; E83.39 Other disorders of phosphorus metabolism; E66.9 Obesity, unspecified; L27.0 Generalized skin eruption due to drugs and medicaments taken internally; I25.10 Atherosclerotic heart disease of native coronary artery without angina pectoris; E78.5 Hyperlipidemia, unspecified; D63.8 Anemia in other chronic diseases classified elsewhere; T36.1X5A Adverse effect of cephalosporins and other beta-lactam antibiotics, initial encounter; Y92.89 Other specified places as the place of occurrence of the external cause; Z98.42 Cataract extraction status, left eye; Z99.2 Dependence on renal dialysis; Z89.421 Acquired absence of other right toe(s); Z95.5 Presence of coronary angioplasty implant and graft; Z88.5 Allergy status to narcotic agent; Z88.0 Allergy status to penicillin; Z79.82 Long term (current) use of aspirin; Z79.899 Other long term (current) drug therapy; Z79.4 Long term (current) use of insulin; Z79.02 Long term (current) use of antithrombotics/antiplatelets; Z68.38 Body mass index [BMI] 38.0-38.9, adult; Z87.891 Personal history of nicotine dependence; I27.20 Pulmonary hypertension, unspecified; Z86.718 Personal history of other venous thrombosis and embolism
CPT/HCPCS: 36415; 71010; 80048; 80053; 82140; 82962; 83605; 83735; 83880; 84100; 84484; 85025; 85610; 85651; 85730; 86140; 87040; 93005; 93880; 96374; 96375; 96376; 99291; A6261; J1200; J1650; J1815; J2060; J3370; J7030